=== PATIENT | female | born 1980 | race Two or more races ===

== ENCOUNTER → 2019-05-29 | Outpatient (REF) | payer OTHER ==
[~2019-05-29] MED LIST: FERR150C PO; MULT1TAB16 PO; VITA500T40 PO; VITRTAB4 PO
== END ==
LOC: M LAB LCGH 12:04
PROVIDERS: ATTEND Nurse Practitioner Family
DX: Z00.00 Encounter for general adult medical examination without abnormal findings (principal); Z12.4 Encounter for screening for malignant neoplasm of cervix

== ENCOUNTER 2019-08-09 09:46 | Day surgery (SDC) | payer OTHER ==
[~2019-08-09] VITALS: Ht 165.1 cm; Wt 97.5 kg
[~2019-08-09 09:46] MED LIST changes: +EQ I1CAP PO; +LIDOCAINE 2% INJ 100 MG/5 ML SDV (FOR ANES.) As Ordered ONE; +propofoL 200 MG/20 ML VIAL As Ordered ONE
[2019-08-09] MEDS ORDERED: NS 1,000 ML IV ONE (10:00)
--- NOTE | 2019-08-09 11:52 | ROOR ---
Patient Name: Sara Sarabia Procedure Date: 08/09/2019 11:40 AM Date of : 1980 Age: 39 Room: [facility] Gender: Female Note Status: Finalized Procedure: Upper GI endoscopy Indications: Iron deficiency anemia, Exclusion of celiac disease Providers: Brad PERDOMO MD Referring MD: Maria Antonia ROBLES NP Requesting Provider: Medicines: Monitored Anesthesia Care Complications: No immediate complications. Procedure: Pre-Anesthesia Assessment: - The heart rate, respiratory rate, oxygen saturations, blood pressure, adequacy of pulmonary ventilation, and response to care were monitored throughout the procedure. The Endoscope was introduced through the mouth, and advanced to the third part of duodenum. The upper GI endoscopy was accomplished without difficulty. The patient tolerated the procedure well. Findings: The esophagus was normal. The stomach was normal. The examined duodenum was normal. Biopsies for histology were taken with a cold forceps in the second portion of the duodenum and in the third portion of the duodenum for evaluation of celiac disease. Impression: - Normal esophagus. - Normal stomach. - Normal examined duodenum. - Biopsies were taken with a cold forceps for evaluation of celiac disease. Recommendation: - Telephone endoscopist for pathology results in 2 weeks. Brad Perdomo MD Brad PERDOMO MD 08/09/2019 11:51:21 AM Electronically signed by Brad PERDOMO MD Number of Addenda: 0 Note Initiated On: 08/09/2019 11:40 AM Estimated Blood Loss: Estimated blood loss: none.
[2019-08-09] MEDS ORDERED: fentaNYL 100 MCG/2 ML INJECTION (J3010) As Ordered ONE (12:02)
--- NOTE | 2019-08-09 12:12 | ROOR ---
Patient Name: Sara Sarabia Procedure Date: 08/09/2019 11:41 AM Date of : 1980 Age: 39 Room: [facility] Gender: Female Note Status: Finalized Procedure: Colonoscopy Indications: Iron deficiency anemia Providers: Brad PERDOMO MD Referring MD: Maria Antonia ROBLES NP Requesting Provider: Medicines: Monitored Anesthesia Care Complications: No immediate complications. Procedure: Pre-Anesthesia Assessment: - The heart rate, respiratory rate, oxygen saturations, blood pressure, adequacy of pulmonary ventilation, and response to care were monitored throughout the procedure. The Colonoscope was introduced through the anus and advanced to 10 cm into the ileum. The colonoscopy was performed without difficulty. The patient tolerated the procedure well. The quality of the bowel preparation was good. Findings: The perianal and digital rectal examinations were normal. A 5 mm polyp was found in the recto-sigmoid colon. The polyp was sessile. The polyp was removed with a cold snare. Resection and retrieval were complete. Internal hemorrhoids were found during retroflexion. The hemorrhoids were small. Retroflexion in the right colon was performed. The exam was otherwise normal throughout the examined colon. The terminal ileum appeared normal. Impression: - One 5 mm polyp at the recto-sigmoid colon, removed with a cold snare. Resected and retrieved. - Internal hemorrhoids. - The colon is otherwise normal. - The examined portion of the ileum was normal. Recommendation: - Return to referring physician as previously scheduled. - Telephone endoscopist for pathology results in 2 weeks. - If the pathology report reveals adenomatous tissue, then repeat the colonoscopy for surveillance in 5 years. - If the pathology report indicates hyperplastic polyp, then repeat colonoscopy for screening purposes in 10 years. Brad Perdomo MD Brad PERDOMO MD 08/09/2019 12:11:33 PM Electronically signed by Brad PERDOMO MD Number of Addenda: 0 Note Initiated On: 08/09/2019 11:41 AM Estimated Blood Loss: Estimated blood loss: none.
[2019-08-09 12:30] VITALS: BP 126/77
== END 2019-08-09 13:00 | disposition home or self-care (01) ==
LOC: M OPP 09:46
PROVIDERS: ATTEND Internal Medicine Gastroenterology
DX: K63.5 Polyp of colon (principal); K64.8 Other hemorrhoids; D50.9 Iron deficiency anemia, unspecified; Z88.0 Allergy status to penicillin; Z88.7 Allergy status to serum and vaccine
CPT/HCPCS: 43239; 45385; 88305; J3010

== ENCOUNTER → 2022-03-10 | Outpatient (REF) | payer OTHER ==
[~2022-03-10] MED LIST changes: -EQ I1CAP PO; +IBUP200C89 PO; -LIDOCAINE 2% INJ 100 MG/5 ML SDV (FOR ANES.) As Ordered ONE; -propofoL 200 MG/20 ML VIAL As Ordered ONE
== END ==
LOC: M SFHCDERM 17:38
PROVIDERS: ATTEND Dermatology
DX: L90.8 Other atrophic disorders of skin (principal); L08.9 Local infection of the skin and subcutaneous tissue, unspecified